=== PATIENT | female | born 1985 | race Caucasian/White ===

== ENCOUNTER 2017-12-02 13:43 | Inpatient (IN) | payer OTHER ==
[2017-12-02 16:46] LABS: ADD MAN DIFF? NO
[2017-12-02] MEDS: LACTATED RINGER'S 1,000 ML IV ×2 (16:49→17:29)
[2017-12-02 16:56] LABS: WHITE BLOOD COUNT 9.7 10^3/ul (4.8-10.8)
[2017-12-02 16:56] LABS: BASOPHILS % 0.3 % (0.0-2.0); EOSINOPHILS # 0.2 10^3/ul (0.0-0.5); HEMATOCRIT 35.7 % (37.0-47.0); HEMOGLOBIN 11.8 g/dl (12.0-16.0); LYMPHOCYTES # 1.7 10^3/ul (0.8-2.9); LYMPHOCYTES % 17.9 % (15.0-51.0); MEAN CORPUSCULAR HEMOGLOBIN 30.6 pg (29.0-33.0); MEAN CORPUSCULAR HGB CONC 33.1 g/dl (32.0-37.0); MEAN CORPUSCULAR VOLUME 92.5 fl (82.0-101.0); MEAN PLATELET VOLUME 10.6 fl (7.4-10.4); MONOCYTE # 0.8 10^3/ul (0.3-0.9); MONOCYTES % 8.2 % (0.0-11.0); NEUTROPHIL # 6.9 10^3/ul (1.6-7.5); NEUTROPHILS % 70.9 % (39.0-77.0); PLATELET COUNT 184 10^3/UL (140-415); RED BLOOD COUNT 3.86 10^6/ul (4.20-5.40); RED CELL DISTRIBUTION WIDTH 14.2 % (11.5-14.5)
[2017-12-02] MEDS ORDERED: METHYLERGONOVINE 0.2 MG INJ IM ×2 (17:00→23:30)
[2017-12-02] MEDS ORDERED: MISOPROSTOL 200 MCG TAB PR ×2 (17:00→23:30)
[2017-12-02] MEDS ORDERED: CARBOPROST 250 MCG INJ IM ×2 (17:00→23:30)
[2017-12-02] MEDS ORDERED: OXYTOCIN 30 UNITS/LR 500 ML IV ×2 (17:00→23:30)
[2017-12-02 17:15] LABS: INR 0.96; PROTIME 12.9 Sec (11.9-14.9)
[2017-12-02 17:16] LABS: PARTIAL THROMBOPLASTIN TIME 27.1 Sec (25.0-35.0)
[2017-12-02] MEDS ORDERED: morphine SULFATE/PF (10 MG/10 ML) INJ (17:26)
[2017-12-02] MEDS ORDERED: FENTAnyl 50 MCG/ML VIAL (17:26)
[2017-12-02] MEDS ORDERED: DEXAMETHASONE 4 MG/ML 1 ML INJ (17:26)
[2017-12-02] MEDS ORDERED: CITRIC ACID/SODIUM CITRATE 15 ML CUP (17:30)
[2017-12-02] MEDS ORDERED: ONDANSETRON 4 MG INJ (17:31)
[2017-12-02] MEDS: CITRIC ACID/SODIUM CITRATE 15 ML CUP PO (17:33)
[2017-12-02] MEDS: ONDANSETRON 4 MG INJ IV (17:33)
[2017-12-02] MEDS ORDERED: PHENYLephrine (100 MCG/ML) 5ML SYG (18:12)
[2017-12-02] MEDS ORDERED: NALOXONE (0.4 MG/ML) INJ IV (18:30)
[2017-12-02] MEDS ORDERED: morphine 2 MG INJ IV (18:30)
[2017-12-02] MEDS ORDERED: DIPHENHYDRAMINE 50 MG INJ IV (18:30)
[2017-12-02] MEDS ORDERED: ZOLPIDEM 5 MG TAB PO (18:30)
[2017-12-02] MEDS ORDERED: morphine 4 MG/ML VIAL IV (18:30)
[2017-12-02] MEDS: OXYTOCIN 30 UNITS/LR 500 ML IV ×2 (19:18→20:05)
[2017-12-02] MEDS: CEFAZOLIN 2 GM/50 ML (PMX) 50 ML IV (20:17)
[2017-12-02] MEDS ORDERED: LANOLIN 7 GM TUBE TOP (23:30)
[2017-12-02] MEDS ORDERED: NA PHOSPHATE/BIPHOS 133 ML ENEMA PR (23:30)
[2017-12-03] MEDS: LACTATED RINGER'S 1,000 ML IV ×2 (00:40→08:38)
[2017-12-03] MEDS: CEFAZOLIN 2 GM/50 ML (PMX) 50 ML IV ×3 (00:42→16:18)
[2017-12-03] MEDS: KETOROLAC 30 MG INJ IV ×2 (00:51→14:37)
[2017-12-03] MEDS: ONDANSETRON 4 MG INJ IV (04:25)
[2017-12-03] MEDS: CLINDAMYCIN 300 MG CAP PO ×5 (07:59→23:22)
[2017-12-03] MEDS: SENNA/DOCUSATE NA (8.6MG/50MG) TAB PO ×2 (08:38→20:02)
[2017-12-03 09:02] LABS: ADD MAN DIFF? NO
[2017-12-03 09:06] LABS: WHITE BLOOD COUNT 18.1 10^3/ul (4.8-10.8)
[2017-12-03 09:06] LABS: BASOPHILS % 0.1 % (0.0-2.0); HEMATOCRIT 34.5 % (37.0-47.0); HEMOGLOBIN 11.4 g/dl (12.0-16.0); LYMPHOCYTES # 1.4 10^3/ul (0.8-2.9); LYMPHOCYTES % 7.8 % (15.0-51.0); MEAN CORPUSCULAR VOLUME 93.8 fl (82.0-101.0); MEAN PLATELET VOLUME 10.7 fl (7.4-10.4); MONOCYTE # 0.9 10^3/ul (0.3-0.9); NEUTROPHIL # 15.6 10^3/ul (1.6-7.5); NEUTROPHILS % 86.1 % (39.0-77.0); PLATELET COUNT 176 10^3/UL (140-415); RED BLOOD COUNT 3.68 10^6/ul (4.20-5.40); RED CELL DISTRIBUTION WIDTH 14.3 % (11.5-14.5)
[2017-12-03 15:16] LABS: HEPATITIS B SURFACE ANTIGEN NEGATIVE (NEGATIVE)
[2017-12-03 15:25] LABS: RAPID PLASMA REAGIN NONREACTIVE (NR)
[2017-12-03] MEDS ORDERED: HYDROCODONE/APAP (5/325) TAB PO (18:05)
[2017-12-03] MEDS: BISACODYL 10 MG SUPP PR (18:46)
[2017-12-03] MEDS: LACTATED RINGER'S 500 ML IV ×2 (18:46→23:22)
[2017-12-03] MEDS: IBUPROFEN 800 MG TAB PO (21:30)
[2017-12-03] MEDS ORDERED: CEFAZOLIN 2 GM/50 ML (PMX) 50 ML IVPB (22:00)
[2017-12-03] MEDS: CEFAZOLIN 2 GM/50 ML (PMX) 50 ML IVPB (23:22)
[2017-12-04] MEDS: LACTATED RINGER'S 500 ML IV ×4 (03:26→17:01)
[2017-12-04] MEDS: OXYCODONE/ACETAMINOPHEN (5/325) TAB PO ×2 (04:41→16:05)
[2017-12-04] MEDS: CLINDAMYCIN 300 MG CAP PO ×4 (05:54→23:38)
[2017-12-04] MEDS: IBUPROFEN 800 MG TAB PO ×3 (05:54→21:46)
[2017-12-04] MEDS: CEFAZOLIN 2 GM/50 ML (PMX) 50 ML IVPB ×2 (08:55→16:05)
[2017-12-04] MEDS: SENNA/DOCUSATE NA (8.6MG/50MG) TAB PO ×2 (08:55→21:46)
[2017-12-04] MEDS: INFLUENZA VIRUS VACCINE 0.5 ML (DISPENSING) IM* (08:57)
[2017-12-04 10:59] LABS: ADD MAN DIFF? NO
[2017-12-04 11:05] LABS: WHITE BLOOD COUNT 12.1 10^3/ul (4.8-10.8)
[2017-12-04 11:05] LABS: BASOPHIL # 0.1 10^3/ul (0.0-0.1); BASOPHILS % 0.4 % (0.0-2.0); EOSINOPHILS # 0.2 10^3/ul (0.0-0.5); EOSINOPHILS % 1.4 % (0.0-7.0); HEMATOCRIT 30.6 % (37.0-47.0); HEMOGLOBIN 10.1 g/dl (12.0-16.0); LYMPHOCYTES % 16.3 % (15.0-51.0); MEAN CORPUSCULAR HEMOGLOBIN 30.9 pg (29.0-33.0); MEAN CORPUSCULAR VOLUME 93.6 fl (82.0-101.0); MEAN PLATELET VOLUME 10.5 fl (7.4-10.4); MONOCYTE # 0.9 10^3/ul (0.3-0.9); MONOCYTES % 7.6 % (0.0-11.0); NEUTROPHIL # 8.8 10^3/ul (1.6-7.5); NEUTROPHILS % 73.4 % (39.0-77.0); PLATELET COUNT 161 10^3/UL (140-415); RED BLOOD COUNT 3.27 10^6/ul (4.20-5.40); RED CELL DISTRIBUTION WIDTH 14.6 % (11.5-14.5)
[2017-12-05] MEDS: OXYCODONE/ACETAMINOPHEN (5/325) TAB PO (00:59)
[2017-12-05] MEDS: CLINDAMYCIN 300 MG CAP PO ×2 (05:33→12:00)
[2017-12-05] MEDS: IBUPROFEN 800 MG TAB PO ×2 (05:33→14:14)
[2017-12-05] MEDS: LACTATED RINGER'S 500 ML IV ×2 (07:35)
[2017-12-05] MEDS: CEFAZOLIN 2 GM/50 ML (PMX) 50 ML IVPB ×2 (08:46)
[2017-12-05] MEDS: SENNA/DOCUSATE NA (8.6MG/50MG) TAB PO (08:46)
[2017-12-05] MEDS: DIPHTH/TET/ACEL PERTUSS (ADULT) 0.5 ML VIAL IM* (08:59)
[2017-12-05] MEDS: MEASLES,MUMPS,RUBELLA VACCINE INJ SC* (08:59)
== END 2017-12-05 15:34 | disposition home or self-care (01) | DRG 766 ==
LOC: OBT 13:43 → L-D 13:43 → OBT 15:52 → L-D 15:52 → PP1 22:30
PROVIDERS: Obstetrics & Gynecology
PROC: 10D00Z1 Extraction of Products of Conception, Low, Open Approach (ICD-10-PCS; principal; 2017-12-02)
DX: O36.5930 Maternal care for other known or suspected poor fetal growth, third trimester, not applicable or unspecified (principal); O34.211 Maternal care for low transverse scar from previous cesarean delivery; Z37.0 Single live birth; Z3A.37 37 weeks gestation of pregnancy
CPT/HCPCS: 76818; 85025; 85610; 85730; 86592; 86850; 86870; 86900; 86901; 87340; 90686; 90715; 99464

== ENCOUNTER 2017-12-21 09:45 | Emergency (ER) | payer OTHER | END 2017-12-21 11:02 | disposition home or self-care (01) | LOC: FTE 09:45 | DX: R05 Cough (principal) | CPT/HCPCS: 99283 ==